=== PATIENT | male | born 1965 | race Caucasian/White ===

== ENCOUNTER 2017-01-30 17:01 | Emergency (ER) | payer OTHER ==
[~2017-01-30] VITALS: Ht 180.3 cm; Wt 86.0 kg
[~2017-01-30 17:01] MED LIST: CYMB30CA PO; ECASA PO; LIPI20TA PO; LISI-363 PO; LORTA5 PO; MOBI15TA PO; NORV5TAB PO; RANI150T PO; XANA1TAB6 PO
[2017-01-30 17:10] VITALS: BP 119/73; PULSE 71; RESP 28; TEMP 98.2; O2SAT 100
[2017-01-30] MEDS ORDERED: ZOLP10TA3 PO (17:25)
[2017-01-30] MEDS ORDERED: METH750T PO (17:25)
[2017-01-30] MEDS ORDERED: GABA100C4 PO (17:25)
[2017-01-30] MEDS ORDERED: NITR1SUB3 SL (17:25)
[2017-01-30] MEDS ORDERED: AMLO5TAB2 PO (17:25)
[2017-01-30] MEDS ORDERED: SUMA100T2 PO (17:25)
[2017-01-30] MEDS ORDERED: RANI150T PO (17:25)
[2017-01-30] MEDS ORDERED: ATOR20TA15 PO (17:25)
[2017-01-30] MEDS ORDERED: VALA500T PO (17:25)
[2017-01-30] MEDS ORDERED: LISI-515 PO (17:25)
[2017-01-30] MEDS ORDERED: DIAZ5TAB PO (17:25)
[2017-01-30] MEDS ORDERED: ISOS10TA3 PO (17:25)
[2017-01-30] MEDS ORDERED: DULO1CAP3 PO (17:25)
[2017-01-30] MEDS ORDERED: ASPI81CH37 CHEW (17:25)
[2017-01-30] MEDS ORDERED: ALPR.5 PO (17:29)
[2017-01-30] MEDS ORDERED: OXYC1TAB63 PO (17:30)
[2017-01-30] MEDS ORDERED: LORazepam 2 MG/ML VIAL IV PUSH ONE (17:30)
--- NOTE | 2017-01-30 17:34 | PD ---
HPI Chief Complaint: contractions Time Seen by Provider: 17:25 Travel History International Travel<30 days: No Contact w/Intl Traveler<30days: No Traveled to known affect area: No History of Present Illness HPI 51yo M with PMH of PTSD, HTN, HLD, alcohol abuse presents to the ED with multiple complaints. States he has not been feeling well for a few days. Today he started feeling his hands and feet contract as if he cant control it and he also had chest pain at the same time. He took xanax but it did not help. Now the contractions subsided but he is still not feeling well. Denies any fever, sob, vomiting. PFSH Past Medical History Arthritis: Yes Anxiety: Yes Depression: Yes Heart Rhythm Problems: No Cardiovascular Problems: Yes (HTN) High Cholesterol: Yes Chest Pain: Yes Congestive Heart Failure: No Cerebrovascular Accident: No GERD: Yes Genitourinary: Yes (Kidney infarct) Headaches: Yes Hiatal Hernia: No Hypertension: Yes Immune Disorder: No Kidney Stones: Yes Musculoskeletal: Yes Neurologic: Yes Psychiatric: Yes Reproductive: No Respiratory: No Integumentary: Yes (Skin CA) Migraines: Yes Renal Failure: No Seizures: No Ulcer: No Tetanus Vaccination: Unknown Influenza Vaccination: Yes Past Surgical History Appendectomy: Yes (1996) Arteriovenous Shunt: No Cardiac Surgery: No Social History Alcohol Use: Yes (Occ.) Tobacco Use: No Substance Use: No Allergies-Medications (Allergen,Severity, Reaction): Coded Allergies: acetaminophen (Unverified Allergy, Unknown, Patient denies, 01/30/17) oxycodone (Unverified Allergy, Unknown, Patient denies , 01/30/17) Reported Meds & Prescriptions Reported Meds & Active Scripts Active Reported Oxycodone-Acetaminophen 5-325 mg Tab 1 Tab PO Q6H PRN Xanax (Alprazolam) 0.5 Mg Tab 0.5 Mg PO Q6H PRN Zolpidem (Zolpidem Tartrate) 10 Mg Tab 10 Mg PO HS PRN Sumatriptan (Sumatriptan Succinate) 100 Mg Tab 100 Mg PO ONCE PRN If a satisfactory response has not been obtained at 2 hours, a second dose may be administered Ranitidine (Ranitidine HCl) 150 Mg Tab 150 Mg PO DAILY Nitroglycerin SL (Nitroglycerin) 0.4 Mg Subl 0.4 Mg SL DIRECTED PRN ONE TABLET UNDER THE TONGUE NEEDED FOR CHEST PAIN, MAY REPEAT EVERY FIVE MINUTES FOR A TOTAL OF 3 DOSES OR CALL 911 IF NO RELIEF Methocarbamol 750 Mg Tab 750 Mg PO TID PRN Lisinopril 20 Mg Tab 20 Mg PO DAILY Isosorbide Mononitrate 10 Mg Tab 30 Mg PO DAILY Take 2 doses 7 hours apart. Gabapentin 100 Mg Cap 200 Mg PO DAILY Duloxetine DR (Duloxetine HCl) 60 Mg Capdr 60 Mg PO DAILY Diazepam 5 Mg Tab 2.5 Mg PO BID PRN Atorvastatin (Atorvastatin Calcium) 20 Mg Tab 20 Mg PO HS Aspirin Low Dose (Aspirin) 81 Mg Chew 81 Mg CHEW DAILY Amlodipine (Amlodipine Besylate) 5 Mg Tab 5 Mg PO DAILY Review of Systems Except as stated in HPI: all other systems reviewed are Neg Physical Exam Narrative GENERAL: 51yo M in mild distress. SKIN: Focused skin assessment warm/dry. HEAD: Atraumatic. Normocephalic. EYES: Pupils equal and round. No scleral icterus. No injection or drainage. ENT: No nasal bleeding or discharge. Mucous membranes pink and moist. NECK: Trachea midline. No JVD. CARDIOVASCULAR: Regular rate and rhythm. No murmur appreciated. RESPIRATORY: No accessory muscle use. Clear to auscultation. Breath sounds equal bilaterally. GASTROINTESTINAL: Abdomen soft, non-tender, nondistended. No rebound tenderness or guarding. MUSCULOSKELETAL: No obvious deformities. No clubbing. No cyanosis. No edema. NEUROLOGICAL: Awake and alert. No obvious cranial nerve deficits. Motor grossly within normal limits. Normal speech. PSYCHIATRIC: Anxious appearing. Data Data Last Documented VS Vital Signs Date Time Temp Pulse Resp B/P (MAP) Pulse Ox O2 Delivery O2 Flow Rate FiO2 01/30/17 18:55 68 18 117/79 (92) 98 Room Air 01/30/17 17:15 2.00 01/30/17 17:10 98.2 Orders Orders Electrocardiogram (01/30/17 ) Complete Blood Count With Diff (01/30/17 17:28) Basic Metabolic Panel (Bmp) (01/30/17 17:28) Troponin I (01/30/17 17:28) Ckmb (Isoenzyme) Profile (01/30/17 17:28) Chest, Single Ap (01/30/17 ) Ct Abd/Pel W/O Iv Contrast (01/30/17 ) Urinalysis - C+S If Indicated (01/30/17 17:28) Magnesium (Mg) (01/30/17 17:28) Lorazepam Inj (Ativan Inj) (01/30/17 17:30) Morphine Inj (Morphine Inj) (01/30/17 17:45) Labs Laboratory Tests Test 01/30/17 17:40 White Blood Count 8.3 TH/MM3 Red Blood Count 4.94 MIL/MM3 Hemoglobin 14.1 GM/DL Hematocrit 42.0 % Mean Corpuscular Volume 85.0 FL Mean Corpuscular Hemoglobin 28.5 PG Mean Corpuscular Hemoglobin Concent 33.6 % Red Cell Distribution Width 13.1 % Platelet Count 317 TH/MM3 Mean Platelet Volume 8.3 FL Neutrophils (%) (Auto) 74.4 % Lymphocytes (%) (Auto) 18.6 % Monocytes (%) (Auto) 4.4 % Eosinophils (%) (Auto) 0.8 % Basophils (%) (Auto) 1.8 % Neutrophils # (Auto) 6.2 TH/MM3 Lymphocytes # (Auto) 1.5 TH/MM3 Monocytes # (Auto) 0.4 TH/MM3 Eosinophils # (Auto) 0.1 TH/MM3 Basophils # (Auto) 0.1 TH/MM3 CBC Comment DIFF FINAL Differential Comment Blood Urea Nitrogen 16 MG/DL Creatinine 0.99 MG/DL Random Glucose 114 MG/DL Calcium Level 8.7 MG/DL Magnesium Level 2.0 MG/DL Sodium Level 140 MEQ/L Potassium Level 3.9 MEQ/L Chloride Level 109 MEQ/L Carbon Dioxide Level 22.9 MEQ/L Anion Gap 8 MEQ/L Estimat Glomerular Filtration Rate 79 ML/MIN Total Creatine Kinase 80 U/L Troponin I LESS THAN 0.02 NG/ML MDM Medical Decision Making Medical Screen Exam Complete: Yes Emergency Medical Condition: Yes Interpretation(s) EKG: Sinus bradycardia at 58bpm. Normal axis. No ST segment elevation or depression. Differential Diagnosis Anxiety vs. chronic pain vs. intraabdominal pathology vs. atypical chest pain Narrative Course 51yo M with multiple complaints today. States he feels his hands and feet contract and then had some chest pain and also did not get better with xanax. States he had cardiac cath 3 months ago and no stent was needed and he has good follow up with [employer] Dr. Venegas. EKG unremarkable. VS stable. Pt was initially hyperventilating and appears very anxious but was adamant that this was not his panic attack. Labs reviewed, no leukocytosis. BMP unremarkable. Normal K, normal magnesium, normal calcium. Troponin negative. CTa/p showed no acute intra-abdominal process. CXR negative. Do not feel that pt was having cardiac chest pain. Pt given morphine and ativan and reevaluated at bedside. Currently feels better and agrees with follow up with PMD and [employer]. Return precautions given. Diagnosis Primary Impression: Abdominal pain Qualified Codes: R10.9 - Unspecified abdominal pain Additional Impressions: Muscle spasm Atypical chest pain Patient Instructions: General Instructions Departure Forms: Tests/Procedures Additional Instructions: Please follow up with your primary care physician and [employer] in 1-2 days. Return to the ED if symptoms worsen. Med/Other Pt SpecificInfo: No Change to Meds Disposition: 01 DISCHARGE HOME Condition: Stable Halle Obregon DO Jan 30, 2017 17:34
[2017-01-30] MEDS ORDERED: MORPHINE SULFATE 8 MG/ML INJ IV PUSH ONE (17:45)
[2017-01-30 17:47] LABS: AUTOMATED NEUTROPHIL # 6.2 TH/MM3 (1.8-7.7); BASOPHIL # 0.1 TH/MM3 (0-0.2); BASOPHIL % 1.8 % (0.0-2.0); EOSINOPHIL # 0.1 TH/MM3 (0-0.4); EOSINOPHIL % 0.8 % (0.0-4.0); HEMO FLAGS DIFF FINAL; LYMPH % 18.6 % (9.0-44.0); LYMPHOCYTE # 1.5 TH/MM3 (1.0-4.8); MEAN CORPUSCULAR HEMOGLOBIN 28.5 PG (27.0-34.0); MEAN CORPUSCULAR HGB CONC 33.6 % (32.0-36.0); MONO % 4.4 % (0.0-8.0); NEUT % 74.4 % (16.0-70.0); PLATELET COUNT 317 TH/MM3 (150-450); RED BLOOD COUNT 4.94 MIL/MM3 (4.50-5.90); RED CELL DISTRIBUTION WIDTH 13.1 % (11.6-17.2); WHITE BLOOD COUNT 8.3 TH/MM3 (4.0-11.0)
[2017-01-30 17:56] LABS: CHLORIDE 109 MEQ/L (98-107); POTASSIUM 3.9 MEQ/L (3.5-5.1); SODIUM (NA) 140 MEQ/L (136-145)
[2017-01-30 17:59] LABS: ANION GAP 8 MEQ/L (5-15); BICARBONATE 22.9 MEQ/L (21.0-32.0); BLOOD UREA NITROGEN 16 MG/DL (7-18)
[2017-01-30 18:02] LABS: GLOMERULAR FILTRATION RATE 79 ML/MIN (>89)
[2017-01-30 18:13] LABS: CREATINE KINASE 80 U/L (39-308)
--- NOTE | 2017-01-30 18:17 | RADRPT ---
EXAM DATE/TIME: 01/30/2017 17:36 [facility] COMPARISON: No previous studies available for comparison. INDICATIONS : Shortness of breath. MEDICAL HISTORY : Hypertension. Cardiovascular disease. SURGICAL HISTORY : None. ENCOUNTER: Initial ACUITY: 1 day PAIN SCORE: 0/10 LOCATION: Bilateral chest FINDINGS: A single view of the chest demonstrates the lungs to be symmetrically aerated without evidence of mas s, infiltrate or effusion. The cardiomediastinal contours are unremarkable. Osseous structures are intact. CONCLUSION: No acute disease. Seth Welch MD on January 30, 2017 at 18:15 Board Certified Radiologist. This report was verified electronically.
--- NOTE | 2017-01-30 18:23 | RADRPT ---
EXAM DATE/TIME: 01/30/2017 18:01 [facility] COMPARISON: No previous studies available for comparison. INDICATIONS : Right flank and lower back pain. ORAL CONTRAST: No oral contrast ingested. RADIATION DOSE: 17.74 CTDIvol (mGy) MEDICAL HISTORY : Hypertension. Renal calculi. Cerebrovascular disease.Skin cancer. SURGICAL HISTORY : Appendectomy. ENCOUNTER: Initial ACUITY: 2 days PAIN SCALE: 7/10 LOCATION: Right flank TECHNIQUE: Volumetric scanning of the abdomen and pelvis was performed. Using automated exposure control and ad justment of the mA and/or kV according to patient size, radiation dose was kept as low as reasonably achievable to obtain optimal diagnostic quality images. DICOM format image data is available electro nically for review and comparison. FINDINGS: LOWER LUNGS: The visualized lower lungs are clear. LIVER: Homogeneous density without lesion. There is no dilation of the biliary tree. No calcified gallston es. SPLEEN: Normal size without lesion. PANCREAS: Within normal limits. KIDNEYS: Normal in size and shape. There is no mass, stone, or hydronephrosis. ADRENAL GLANDS: Within normal limits. VASCULAR: There is no aortic aneurysm. BOWEL/MESENTERY: The stomach, small bowel, and colon demonstrate no acute abnormality. There is no free intraperitone al air or fluid. ABDOMINAL WALL: There is a tiny umbilical hernia containing only fat. RETROPERITONEUM: There is no lymphadenopathy. BLADDER: No wall thickening or mass. REPRODUCTIVE: Within normal limits. INGUINAL: There is no lymphadenopathy or hernia. MUSCULOSKELETAL: Mild degenerative changes and scoliosis of the thoracolumbar spine are noted. CONCLUSION: 1. No acute intra-abdominal process. 2. Mild degenerative changes and scoliosis of the thoracolumbar spine. 3. Tiny umbilical hernia containing only fat. Seth Welch MD on January 30, 2017 at 18:18 Board Certified Radiologist. This report was verified electronically.
[2017-01-30 18:55] VITALS: BP 117/79; PULSE 68; RESP 18; O2SAT 98
[2017-01-30 19:26] VITALS: BP 119/82
--- NOTE | 2017-01-31 14:13 | EKG ---
Date Performed: 01/30/2017 Time Performed: 17:43:16 PTAGE: 51 years EKG: SINUS BRADYCARDIA POSSIBLE RIGHT VENTRICULAR CONDUCTION DELAY BORDERLINE ECG Compared to pr ior tracing no significant change PREVIOUS TRACING : 09/25/2006 11.22 DOCTOR: Tahir Montoya Interpretating Date/Time 01/31/2017 14:09:49
== END 2017-01-30 19:26 | disposition home or self-care (01) ==
LOC: PHED 17:01
DX: R07.89 Other chest pain (principal); R10.9 Unspecified abdominal pain; M62.838 Other muscle spasm; R00.1 Bradycardia, unspecified; I10 Essential (primary) hypertension; E78.00 Pure hypercholesterolemia, unspecified; K21.9 Gastro-esophageal reflux disease without esophagitis; Z87.442 Personal history of urinary calculi
CPT/HCPCS: 71010; 74176; 80048; 82550; 83735; 84484; 85025; 93005; 96374; 96375; 99285; J2060; J2270